=== PATIENT | female | born 1945 | race Hispanic/Latino ===

== ENCOUNTER 2018-09-09 12:01 | Day surgery (SDC) | payer MEDICARE, OTHER ==
[2018-09-04 11:45] VITALS: BMI 23.8
[2018-09-09] MEDS ORDERED: HYDROmorphone 0.5 mg/0.5 ml ISec IVP PRN (12:42)
[2018-09-09] MEDS ORDERED: Lactated Ringer's 1,000 ML IV SCH ×3 (12:45→16:00)
[2018-09-09] MEDS ORDERED: Bupivacaine 0.5% 50 ML IJ ONE (12:50)
[2018-09-09] MEDS ORDERED: Bupivacaine 0.25% 50 ML INJ IJ ONE (12:50)
[2018-09-09] MEDS ORDERED: Succinylcholine 200 mg/10 ml Inj IV ONE (12:57)
[2018-09-09] MEDS ORDERED: Etomidate 20 mg/10ml Inj IV ONE (12:57)
[2018-09-09] MEDS ORDERED: Desflurane Inhalation Anesthetic Liq (240 ml) ONE (13:01)
[2018-09-09] MEDS ORDERED: Propofol 10 mg/ml Inj (20 ML) ONE (13:03)
[2018-09-09] MEDS ORDERED: Esmolol 100 mg/10ml Inj IV ONE (13:44)
[2018-09-09] MEDS ORDERED: Neostigmine Methylsulfate 3mg/3ml Syringe IV ONE (14:20)
[2018-09-09] MEDS ORDERED: HYDROmorphone 1 mg/ml ISec IVP PRN (15:53)
[2018-09-09] MEDS ORDERED: Morphine 2 mg/ml ISec IVP PRN (15:53)
--- NOTE | 2018-09-09 15:53 | PCM.SURG1 ---
Surgeon's Initial Post Op Note - Surgeon's Notes Surgeon: Dr. Moss [employer] Specialist: Dr. Jacques PGY3 Type of Anesthesia: General Endo Pre-Operative Diagnosis: Vaginal Prolapse Operative Findings: See operative dictation Post-Operative Diagnosis: Same Operation Performed: Laparoscopic Vaginal hysterectomy hybrid Specimen/Specimens Removed: Uterus fallopean tubes ovaries Estimated Blood Loss: EBL {In ML}: 100 Blood Products Given: N/A Drains Used: No Drains Post-Op Condition: Good Date of Surgery/Procedure: 09/09/18 Time of Surgery/Procedure: 15:52
[2018-09-09] MEDS: Oxycodone/Acetaminophen 5/325 mg Tab PO PRN (21:43)
[2018-09-10 07:56] LABS: GRAN # 7.09 (1.4-6.5); GRAN % 83.8 % (50.0-68.0); HEMOGLOBIN 11.5 g/dL (12.0-16.0); LYMPH # 0.9 (1.2-3.4); LYMPH % 11.1 % (22.0-35.0); MEAN CORPUSCULAR HEMOGLOBIN 28.2 pg (25.0-35.0); MEAN CORPUSCULAR HGB CONC 33.1 g/dl (31.0-37.0); MEAN PLATELET VOLUME 9.2 fl (7.0-11.0); MONO # 0.4 (0.1-0.6); MONO % 5.1 % (1.0-6.0); RBC 4.08 10^6/uL (3.5-6.1); RED CELL DISTRIBUTION WIDTH 13.8 % (11.5-14.5); WHITE BLOOD COUNT 8.5 10^3/ul (4.5-11.0)
[2018-09-10 08:27] VITALS: BP 111/51; PULSE 67; RESP 20; TEMP 97.9; O2SAT 100
[2018-09-10] MEDS: Oxycodone/Acetaminophen 5/325 mg Tab PO PRN (10:35)
--- NOTE | 2018-10-06 21:45 | OP ---
PROCEDURE DATE: 09/09/2018PREOPERATIVE DIAGNOSES: Symptomatic uterovaginal prolapse, with enterocele, cystocele grade 2. PROCEDURE PERFORMED: A laparoscopic-assisted vaginal hysterectomy with a bilateral salpingo-oophorectomy, and enterocele repair, and cystocele repair. SURGEON: Paramjit Moss MD. LANGUAGES AND LITERATURE INSTRUCTOR: . ANESTHESIA: General endotracheal. ESTIMATED BLOOD LOSS: Minimal. DESCRIPTION OF PROCEDURE: After a long discussion was held with the patient regarding the procedure, all questions were answered, the patient signed her consent, she was brought into operating room. General endotracheal anesthesia was induced. The patient was prepped and draped in usual sterile fashion. Examination under anesthesia revealed the uterus to have a grade 2 cystocele, grade 2 enterocele. Right and left adnexa were felt to be negative. The patient was prepped and draped in usual sterile fashion. Bladder was catheterized and approximately 70 mL of urine were obtained. A small incision was made in the subumbilical area, it was brought down to the fascia. Fascia was opened, rectus muscles split, peritoneum was visualized, grasped with 2 hemostats, opened, and a blunt port trocar was inserted. Once laparoscopic review of the entire pelvic area was performed, the uterus itself was found to be small, right and left adnexa were found to be clean, though the left adnexa was found to be fused to the lateral manning. Two 5 mm ports were made opposite to each other, the first one was at McBurney's point. Through that one, grasping instrument was inserted and allowed lysis of adhesions noted to the sigmoid colon and the ovary and salpinx. Once these adhesions were taken down, using a LigaSure device, bilateral salpingectomy procedures were performed. LigaSure device was then carried down to the uterine vessels, which were clamped and fired upon. The LigaSure device continued on until the cardinal ligaments were reached. At this time frame, LigaSure device was removed. Hemostasis again was maintained. The laparoscopic insufflation was turned off and the laparoscope itself was removed. Attention was turned to the vagina where the patient again was reprepped and redraped. Towel clips were placed on the cervical stump and the uterus was brought to the introitus. Using a knife, a circumferential incision was made around the cervical uterine junction. Posterior cul-de-sac was opened. Anterior cul-de-sac was developed and once the peritoneum was visualized well, anterior cul-de-sac was opened. Using Heaneys, the paracervical vessels were grasped, clamped, cut and tied with 0-Vicryl suture. The infundibulopelvic ligaments were then grasped, clamped, cut and tied with 0-Vicryl suture. The entire specimen was then removed easily. Once the specimen was removed, the uterus was sent to Pathology for examination. The vaginal cuff itself was reexamined and it was reapproximated with a Carbajal culdoplasty modified procedure. [id number] sutures were then used to close off and incorporate the remainder of the vaginal mucosa. At this time frame, the cystocele itself was repaired. The entire cystocele was outlined with Allises. Metzenbaum's were used to incise the vaginal mucosa in the midline and extend the incision up to the apex of the cystocele. Blunt dissection was carried down and dissection with a sponge, we the vaginal mucosa from the remainder of the musculofascial layer. Once this was performed, the bladder itself was reimbricated, and excess vaginal mucosa was trimmed. Using 0-Vicryl suture, [id number] sutures were placed in all the way down towards the end of the cystocele. Again, hemostasis was excellent throughout this entire time. The procedure at this time was terminated. The vagina was dry. No packing inserted. The patient was gently awakened, sent to the recovery room in stable condition. Alvarez catheter was inserted prior to sending the patient to the recovery room. Paramjit Moss MD
== END 2018-09-10 14:42 | disposition home or self-care (01) ==
LOC: SDS 12:01 → 5RSO 18:16 → SDS 09-10 14:42
PROVIDERS: ATTEND Obstetrics & Gynecology Gynecology
DX: N81.2 Incomplete uterovaginal prolapse (principal); N81.6 Rectocele; N81.10 Cystocele, unspecified; N83.8 Other noninflammatory disorders of ovary, fallopian tube and broad ligament; N88.8 Other specified noninflammatory disorders of cervix uteri; N85.8 Other specified noninflammatory disorders of uterus
CPT/HCPCS: 36415; 57265; 58552; 85025; 87081; 88305; 97162; 97530; G8978; G8979; J0131; J0330; J0690; J1100; J1170 ×2; J1885; J2270; J2405; J2704; J2710; J2765; J3010; J7030; J7120